=== PATIENT | female | born 1950 | race Caucasian/White ===

== ENCOUNTER 2023-03-13 19:18 | Outpatient (REF) | payer MEDICARE, MEDICAID, SELFPAY | END 2023-03-13 19:19 | disposition home or self-care (01) | LOC: HO.HHCLNP 19:18 | PROVIDERS: Visit Provider Family Medicine | DX: R30.0 Dysuria (principal) | CPT/HCPCS: 36415; 81513; 87086 ==

== ENCOUNTER 2023-04-26 16:06 | Outpatient (REF) | payer MEDICARE, MEDICAID, SELFPAY | END 2023-04-26 16:07 | disposition home or self-care (01) | LOC: HO.CHCLNP 16:06 | PROVIDERS: Visit Provider Pediatrics | DX: N39.0 Urinary tract infection, site not specified (principal) | CPT/HCPCS: 87086 ==

== ENCOUNTER 2023-05-02 08:12 | Outpatient (REF) | payer MEDICARE, MEDICAID, SELFPAY ==
[2023-05-02 14:27] LABS: MANUAL DIFF FLAG NO
[2023-05-02 14:33] LABS: Basophils Percent Auto 0.3 % (0-2); Eosinophils Absolute Auto 0.3 X10*3/uL (0.0-0.4); Eosinophils Percent Auto 4.9 % (0-4); Hematocrit 35.4 % (37.0-47.0); Hemoglobin 11.9 g/dl (12.0-16.0); Imm Gran Abs Auto 0.02 X10*3/uL (0.00-0.03); Imm Gran Pct Auto 0.3 % (0.0-0.4); Lymphocytes Absolute Auto 2.2 X10*3/uL (1.2-4.9); Lymphocytes Percent Auto 37.7 % (20-40); Mean Corpuscular HGB Conc 33.6 g/dl (31.0-35.0); Mean Corpuscular Hemoglobin 31.8 pg (27.0-33.0); Mean Corpuscular Volume 94.7 fL (80.0-98.0); Mean Platelet Volume 10.8 fL (9.4-12.3); Monocytes Absolute Auto 0.4 X10*3/uL (0.1-1.2); Monocytes Percent Auto 6.8 % (2-11); Neutrophils Absolute Auto 2.9 x10*3/uL (2.0-8.3); Platelet Count 232 X10*3/uL (160-400); Red Blood Count 3.74 X10*6/uL (4.20-5.50); Red Cell Distribution Width 12.9 % (11.0-16.0); White Blood Count 5.9 X10*3/uL (4.8-10.8)
[2023-05-02 14:48] LABS: Anion Gap 11 (12-20); Blood Urea Nitrogen 25 mg/dL (9-16); Calcium 9.3 mg/dL (8.4-10.2); Carbon Dioxide 26 mmol/L (22-29); Chloride 108 mmol/L (96-108); Estimated Glomerular Filt Rate 59; Glucose Fasting 103 mg/dL (60-99); Potassium 3.5 mmol/L (3.3-5.1); Sodium 141 mmol/L (135-145)
[2023-05-02 15:07] LABS: TSH reflex Free T4 3.83 uIU/mL (0.32-4.0)
[2023-05-02 15:29] LABS: Creatinine Urine 61.84 mg/dL; Microalbum/Creatinine Ratio Ur 12.9 ug/mg cr (<30)
== END 2023-05-02 08:13 | disposition home or self-care (01) ==
LOC: HO.CHCLDS 08:12
PROVIDERS: Visit Provider Pediatrics
DX: N39.0 Urinary tract infection, site not specified (principal); J30.2 Other seasonal allergic rhinitis; M54.50 Low back pain, unspecified; M79.606 Pain in leg, unspecified; E03.9 Hypothyroidism, unspecified
CPT/HCPCS: 36415; 80048; 82043; 82570; 84443; 85025

== ENCOUNTER 2024-07-02 10:19 | Outpatient (REF) | payer MEDICARE, MEDICAID, SELFPAY ==
--- OUTSIDE RECORDS SUMMARY | 2024-07-02 11:27 | XMS_ITS | Encounter Summary ---
Author Organization [employer] Address [address] [place] [address] 7t [place] [address] Care Team Providers Care Data Engineer Name Role Phone Dorene Benavides MD Primary Care Provider [phone] Reason for Visit * Reason Comments Med Refill Encounter Details Date Type Department Care Team ([facility] st Contact Info) Description 11/05/2022 Refill [facility] [address] [place], [place] [phone] Dorene Benavides MD [address] [place] [address] Social History Tobacco Use Types Packs/Day Years Used Date Smoking Tobacco: Never Assessed Comments Unknown Sex and Gender Information Value Date Recorded Sex Assigned at Female 03/12/2022 10:19 AM EDT Legal Sex Female 10:19 AM EDT Gender Identity Female 03/12/2022 10:19 AM EDT Sexual Orientation Straight 03/12/2022 10 :19 AM EDT documented as of this encounter Plan of Treatment Not on file documented as of this encounter Visit Diagnoses Not on filedocumented in this encounter Care Teams Data Engineer Relationship Specialty Start Date End Date Dorene Benavides MD [address] [place] [address] PCP - General Family Medicine 05/13/18 documented as of this encounter
--- OUTSIDE RECORDS SUMMARY | 2024-07-02 11:27 | XMS_ITS | Encounter Summary ---
Author Organization [employer] Address [address] [facility] 7t [place] [address] Care Team Providers Care Grading Machine Operator Name Role Phone Dorene Benavides MD Primary Care Provider [phone] Reason for Visit * Reason Comments Med Refill Encounter Details Date Type Department Care Team ([facility] st Contact Info) Description 2024 Refill [facility] [address] [place], [place] [phone] Dorene Benavides MD 505 [place] [address] Primary hypertension Social History Tobacco Use Types Packs/Day Years Used Date Smoking Tobacco: Never Passive Smoke Exposure: Never Smokeless Tobacco: Never Depression Answer Date Recorded Patient Health Questionnaire-9 Score 2 04/26/2023 Patient Health Questionnaire-9 Score 2 04/26/2023 Last PHQ-9: Questionnaire Data Not on file 1 06/27/2022 Housing Stability Answer Date Recorded What is your housing situation today? I have saranya dee 04/26/[address] you li ve. Do you have problems with any of the following? None of the above 04/26/2023 Food Insecurity Answer Date Recorded Within the past 12 months, y ou worried that your food would run out before you got money to buy more: Never True 04/26/2023 Within the past 12 months,th e food you bought just didn't last and you didn't have enough money to get more: Never True Transportation Answer Date Recorded In the past 12 months, has l ack of transportation kept you from medical appts, meetings, work or from getting things needed for daily living? No 04/26/2023 Utilities Answer Date Recorded In the past 12 months, has t he electric, gas, oil or water company threatened to shut off services in your home? No 04/26/2023 Depression Answer Date Recorded Patient Health Questionnaire-2 Score 0 04/26/2023 Comments Unknown Sex and Gender Information Value Date Recorded Sex Assigned at Female 03/12/2022 10:19 AM EDT Legal Sex Female 10:19 AM EDT Gender Identity Female 03/12/2022 10:19 AM EDT Sexual Orientation Straight 03/12/2022 10 :19 AM EDT documented as of this encounter Plan of Treatment Not on file documented as of this encounter Visit Diagnoses Diagnosis Primary hypertension Unspecified essential hypertension documented in this encounter Additional Health Concerns Assessment Noted Time PHQ-9 Depression Total Score: 2 04/26/20 23 10:53 AM EST documented as of this encounter Care Teams Grading Machine Operator Relationship Specialty Start Date End Date Dorene Benavides MD [address] [place] [id number] PCP - General Family Medicine 05/13/18 documented as of this encounter
--- OUTSIDE RECORDS SUMMARY | 2024-07-02 11:27 | XMS_ITS | Encounter Summary ---
Author Organization [employer] Address [address] [facility] 7t [place] [address] Care Team Providers Care Falafel Cart Cook Name Role Phone Dorene Benavides MD Primary Care Provider [phone] Reason for Visit * Reason Comments Med Refill Encounter Details Date Type Department Care Team ([facility] Contact Info) Description 11/28/2023 Refill [facility] [address] [place], [place] [phone] Dorene Benavides MD [address] [place] [address] Social History Tobacco Use Types Packs/Day Years [...] Diagnoses Not on filedocumented in this encounter Additional Health Concerns Assessment Noted Time PHQ-9 Depression Total Score: 2 04/26/20 23 10:53 AM EST documented as of this encounter Care Teams Falafel Cart Cook Relationship Specialty Start Date End Date Dorene Benavides MD [address] [place] [address] PCP - General Family Medicine 05/13/18 documented as of this encounter
--- OUTSIDE RECORDS SUMMARY | 2024-07-02 11:27 | XMS_ITS | Encounter Summary ---
Author Organization [employer] Address [address] [facility] 7t [place] [address] Care Team Providers Care Laboratory Chief Name Role Phone Dorene Benavides MD Primary Care Provider [phone] Encounter Details Date Type Department Care Team (Late st Contact Info) Description 09/17/2022 Orders Only [facility] [address] [place] [address] Mini Johansen LPN Social History Tobacco Use Types Packs/Day Years [...] on file documented as of this encounter Procedures Procedure Name Priority Date/Time Associated Diagnosis Comments CULTURE, URINE, ROUTINE Routine 03/13/2023 3:20 PM EDT documented in this encounter Results * Culture, Urine, Routine (03/13/2023 3:20 PM EDT) Urine Urine specimen obtained by clean catch procedure / Unknown 03/13/2023 3:20 PM EDT 03/13/2023 7:33 PM EDT Comment:[facility] - 03/15/2023 11:46 AM EDT Urine Culture Report Result Urine Culture < 10,000 cfu/ml Specimen Source: Urine clean catch us Daisy Mcfadden MD LAB MICROBIOLOGY - GENERAL OR DERABLES Final Result [facility] [address] [place] [address] [phone] documented in this encounter Visit Diagnoses Not on filedocumented in this encounter Care Teams Laboratory Chief Relationship Specialty Start Date End Date Dorene Benavides MD [address] [place] [phone] PCP - General Family Medicine 05/13/18 documented as of this encounter
--- OUTSIDE RECORDS SUMMARY | 2024-07-02 11:27 | XMS_ITS | Encounter Summary ---
Author Organization [employer] Address [address] [facility] 7t [place] [address] Care Team Providers Care Youth Development Professional Name Role Phone Dorene Benavides MD Primary Care Provider [phone] Encounter Details Date Type Department Care Team (Latest Contact Info) Description 07/02/2024 Travel Social History Tobacco Use Types Packs/Day Years Used Date Smoking Tobacco: Never Passive Smoke Exposure: Never Smokeless Tobacco: Never Depression Answer Date Recorded Patient Health Questionnaire-9 Score 0 07/02/2024 Patient Health Questionnaire-9 Score 0 07/02/2024 Last PHQ-9: Questionnaire Data Not on file 0 07/02/2024 Housing Stability Answer Date Recorded What is your housing situation today? Not on christy e 07/02/[address] you li ve. Do you have problems with any of the following? None of the above 07/02/2024 Food Insecurity Answer Date Recorded Within the past 12 months, y ou worried that your food would run out before you got money to buy more: Never True 07/02/2024 Within the past 12 months,th e food you bought just didn't last and you didn't have enough money to get more: Never True Transportation Answer Date Recorded In the past 12 months, has l ack of transportation kept you from medical appts, meetings, work or from getting things needed for daily living? No 07/02/2024 Utilities Answer Date Recorded In the past 12 months, has t he electric, gas, oil or water company threatened to shut off services in your home? No 07/02/2024 Depression Answer Date Recorded Patient Health Questionnaire-2 Score 0 07/02/2024 Internet Access Answer Date Recorded Internet Access Q1 Yes 07/02/2024 Internet Access Q2 Not on file 07/02/2024 Comments Unknown Sex and Gender Information Value [...] Assessment Noted Time PHQ-9 Depression Total Score: 0 07/02/19 25 9:21 AM EST documented as of this encounter Care Teams Youth Development Professional Relationship Specialty Start Date End Date Dorene Benavides MD [address] [place] [phone] PCP - General Family Medicine 05/13/18 documented as of this encounter
--- OUTSIDE RECORDS SUMMARY | 2024-07-02 11:27 | XMS_ITS | Clinical Summary ---
Author Organization [employer] Address [address] [facility] 7t [place] [address] Care Team Providers Care Crimping Machine Operator Name Role Phone Dorene Benavides MD Primary Care Provider [phone] Allergies Active Allergy Reactions Criticality Noted Date Comments Raymond Inhibitors Unknown 06/22/2010 Medications loratadine (Claritin) 10 MG tablet Take 10 mg by mouth if needed each day. 09/20/19 23 Active Acetaminophen Extra Strength 500 MG tablet Take 1 tab orally bid prn pain 60 tablet 5 04/26/20 23 Active Aspirin Low Dose 81 MG EC tablet TAKE 1 TABLET(81 MG) BY MOUTH EVERY DAY 100 tablet 2 05/29/19 24 Active triamcinolone (Kenalog) 0.5 % ointment Apply topically 2 times daily. 200 g 3 10/02/19 24 Active levothyroxine (Synthroid, Levoxyl) 25 MCG tablet TAKE 1 TABLET BY MOUTH EVERY DAY 180 tablet 11/12/19 24 Active hydroCHLOROthia zide (HYDRODiuril) 25 MG tablet TAKE 1 TABLET BY MOUTH EVERY DAY 90 tablet 2 03/04/20 24 Active meloxicam (Mobic) 7.5 MG tablet Take 1 tablet (7.5 mg) by mouth Once per day. 30 tablet 11 03/31/20 24 025 Active cholecalciferol VITAMIN D (Vitamin D-3) 50 MCG (1999) capsule TAKE 1 CAPSULE BY MOUTH TWICE DAILY 180 capsule 05/18/19 25 Active metoprolol succinate XL (Toprol-XL) 50 MG 24 hr tablet TAKE 1 TABLET BY MOUTH EVERY DAY 90 tablet 2 06/22/19 25 Active losartan (Cozaar) 100 MG tabletIndicatio ns:Primary hypertension TAKE 1 TABLET(100 MG) BY MOUTH IN THE MORNING 90 tablet 06/22/19 25 Active estradiol (Estrace) 0.1 MG/GM vaginal cream APPLY A DIME SIZED AMOUNT VAGINALLY 3 TIMES WEEKLY 05/29/19 25 Active famotidine (Pepcid) 20 MG tablet Take 1 tablet (20 mg) by mouth 2 times daily. 60 tablet 3 07/02/19 25 025 Active cyclobenzaprine (Flexeril) 10 MG tablet Take 1 tablet (10 mg) by mouth 3 times daily for 10 days. 30 tablet 05/14/19 24 025 Discontinued(Si de effects) metoprolol succinate XL (Toprol-XL) 50 MG 24 hr tablet TAKE 1 TABLET BY MOUTH 1 TIME 90 tablet 2 09/18/19 24 025 Discontinued terbinafine (LamISIL AT) 1 % cream Apply topically 2 times daily. 90 g 10/02/19 24 025 Discontinued(Th erapy completed) losartan (Cozaar) 100 MG tabletIndicatio ns:Primary hypertension TAKE 1 TABLET(100 MG) BY MOUTH IN THE MORNING 90 tablet 03/20/20 24 025 Discontinued omeprazole (PriLOSEC) [address] capsule TAKE 1 CAPSULE BY MOUTH EVERY DAY BEFORE A MEAL 30 capsule 3 03/30/20 24 025 Discontinued( erapy completed) Active Problems Problem Noted Date Diagnosed Date Rash 10/02/2023 Assessment & Plan (10/02/2023 9:30 AM EDT): Prescribing Terbinafine for symptoms. Refilling Triamcinolone for continued treatment of itchy skin. Relevant Medication Terbinafine (Lamisil AT)1% cream Triamcinolone (Kenalog) 0.5% ointment Dysuria 03/13/2023 Assessment & Plan (03/13/2023 2:53 PM EDT): Patient that presented visit with complaints of dysuria will be given antibiotics to treat concern. Was advised to do a self sure-swab to be sent for evaluation. Recurrent UTI 03/13/2023 Assessment & Plan (03/13/2023 2:53 PM EDT): -Will be referred to Urology for further treatment and evaluation. Idiopathic osteoarthritis 07/31/20172022 Intermittent palpitations 12/19/20162022 Paroxysmal tachycardia 12/05/2016 Medial epicondylitis 07/06/2015 03/13/2023 Benign essential hypertension 07/06/2015 Osteopenia 10/07/2013 03/13/2023 Bunion of left foot 09/19/2012 03/13/2023 Overweight 11/15/2011 03/13/2023 Hypertension 11/15/2011 03/13/2023 Gastroesophageal reflux disease without esophagi tis 11/15/2011 03/13/2023 Allergic rhinitis 11/15/2011 03/13/2023 Encounters Date Type Department Care Team Description 07/02/2024 9:30 AM EST Office Visit [facility] [address] [place] [address] Dorene Benavides MD Breast cancer screening by mammogram (Primary Dx); Dietary counseling; Exercise counseling; Primary hypertension; Vitamin D deficiency 07/02/2024 Travel 2024 Refill [facility] [address] [place] [address] Dorene Benavides MD Primary hypertension 06/18/2024 Patient Outreach [facility] [address] [place] [id number] Dorene Benavides MD Pre-visit Planning (Pre visit planning LVM ) 05/15/2024 Refill [facility] [address] [place] [address] Dorene Benavides MD 05/15/2024 Telephone [facility] [address] [place] [address] Alba Alan RN Referral question 04/21/2024 Orders Only [facility] [address] [place] [address] Dorene Benavides MD Anterolisthesis of lumbar spine (Primary Dx); Multilevel degenerative joint disease of spine; Osteopenia, unspecified location 04/15/2024 Orders Only [facility] [address] [place] [address] Merna Ren MD Acute bilateral low back pain without sciatica (Primary Dx) 04/15/2024 Telephone [facility] [address] [place] [address] Dorene Benavides MD Nurse Triage; Referral 04/13/2024 Telephone [facility] [address] [place] [address] Dorene Benavides MD Referral 04/05/2024 Refill [facility] [address] [place] [address] Dorene Benavides MD 04/01/2024 Telephone [facility] [address] [place] [address] Merna Ren MD from Last 3 Months Immunizations Name Administration Dates Next Due Influenza injectable quadriv alent IIV4 with preservative 01/26/2015 Influenza, IIV3, injectable 03/16/2014 Influenza, Split (incl. purified surface antigen ) 03/05/2013 Influenza, trivalent, adjuvanted 03/06/2016 Pneumococcal Polysaccharide PPSV23 12/13/2010 Tdap 12/13/2010 Zoster, Recombinant 01/10/2018,08/29/2017 Zoster, live 09/22/2012 Social History Tobacco Use Types Packs/Day Years Used Date Smoking Tobacco: Never Passive Smoke Exposure: Never Smokeless Tobacco: Never Tobacco Cessation:Counseling Given: Not Answered Depression Answer Date Recorded Patient Health Questionnaire-9 [...] Orientation Straight 03/12/2022 10 :19 AM EDT Last Filed Vital Signs Vital Sign Reading Time Taken Comments Blood Pressure 155/78 07/02/2024 9:20 AM EST Pulse 68 07/02/2024 9:20 AM EST Temperature 36.8 ??C (98.3 ??F) 07/02/2024 9:20 AM ES T Respiratory Rate 14 07/02/2024 9:20 AM EST Oxygen Saturation 97% 07/02/2024 9:20 AM EST Inhaled Oxygen Concentration - - Weight 71.7 kg (158 lb) 07/02/2024 9:20 AM EST Height 154.9 cm (5' 1 ) 07/02/2024 9:20 AM EST Body Mass Index 29.85 07/02/2024 9:20 AM EST Plan of Treatment Health Maintenance Due Date Last Done Comments CT Colonography 1949 Colonoscopy 1949 Colorectal Cancer Screening 1950 FIT DNA/Cologuard 1949 FIT 1949 FOBT 1950 Sigmoidoscopy 1949 Hepatitis C Screening 1967 Pneumococcal Vaccine: 50+ Years (2 of 2 - PCV) 12/14/2011 12/13/2010 DTaP/Tdap/Td Vaccines (2 - Td or Tdap) 12/13/2020 12/13/2010 COVID-19 Vaccine (2023- season) 2024 Influenza Vaccine (#1) 2024 6, 01/26/2015, 03/16/2014, Additional history exists SDOH Screening 04/26/2024 04/26/2023 Tobacco Screening 05/14/2024 05/14/2023 RSV Patients and Patients Aged 60 years or older (1 - 1-dose 75+ series) 2024 Alcohol/Substance Use Screening 07/02/2025 07/02/2024 Depression Screening 07/02/2025 07/02/2024, 07/02/19 25 Lipid Panel 03/09/2027 03/09/2022, 12/2020, 03/22/2020 Zoster Vaccines Completed 01/10/2018, 08/11, 09/22/2012 HIB Vaccines Aged Out No longer eligi ble based on patient's age to complete this topic HPV Vaccines Aged Out No longer eligi ble based on patient's age to complete this topic Hepatitis A Vaccines Aged Out No long er eligible based on patient's age to complete this topic Hepatitis B Vaccines Aged Out No long er eligible based on patient's age to complete this topic IPV Vaccines Aged Out No longer eligi ble based on patient's age to complete this topic Meningococcal Vaccine Aged Out No erinn amadeo eligible based on patient's age to complete this topic RSV under 20 months Aged Out No longe r eligible based on patient's age to complete this topic Rotavirus Vaccines Aged Out No longer eligible based on patient's age to complete this topic Procedures Procedure Name Priority Date/Time Associated Diagnosis Comments XR LUMBAR SPINE 2-3 VIEWS Routine 04/03/2024 Chronic bilateral low back pain without sciatica XR HIP 2 OR 3 VIEWS LEFT Routine 04/03/2024 Left hip pain LIPID PANEL, STANDARD Routine 03/09/2022 8:53 AM EDT from Last 3 Months or Most Recently Relevant to Health Maintenance Results * XR Hip 2 or 3 Views Left (04/03/2024) Anatomical Region Laterality Modality Lower Extremities, Hip Left Radiograp hic Imaging us Merna Ren MD IMG XR PROCEDURES Final Result * XR Lumbar Spine 2-3 Views (04/03/2024) Anatomical Region Laterality Modality Spine, L-spine Radiographic Dari ging us Merna Ren MD IMG XR PROCEDURES Final Result * (ABNORMAL) LIPID PANEL, STANDARD (03/09/2022 8:53 AM EDT) Chol/HDLC Ratio 3.7 <5.0 (calc) [facility] Cholesterol, Total 183 <200 mg/dL [facility] HDL Cholesterol 49(L) > OR = 50 mg/dL [facility] LDL Cholesterol 110(H) mg/dL (calc) [facility] Comment: Reference range: <100 ?? Desirable range <100 mg/dL for primary prevention; ?? <70 mg/dL for patients with CHD or diabetic patients ?? with > or = 2 CHD risk factors. ?? LDL-C is now calculated using the Quique ?? calculation, which is a validated novel method providing ?? better accuracy than the Friedewald equation in the ?? estimation of LDL-C. ?? Truong HONG et al. MELISA. 2013;310(19): 4706-3391 ?? (http://education.[employer]faq/ZCU694) Non-HDL Cholesterol 134(H) <130 mg/dL (calc) [facility] Comment: For patients with diabetes plus 1 major ASCVD risk ?? factor, treating to a non-HDL-C goal of <100 mg/dL ?? (LDL-C of <70 mg/dL) is considered a therapeutic ?? option. Triglycerides 128 <150 mg/dL CONVE [facility] 03/09/2022 8:53 AM EDT us Dorene Benavides MD LAB BLOOD ORDERABLES Final Re sult [facility] from Last 3 Months or Most Recently Relevant to Health Maintenance Insurance [facility] STANDARD [facility] Care Teams Crimping Machine Operator Relationship Specialty Start Date End Date Dorene Benavides MD [address] [place] [phone] PCP - General Family Medicine 05/13/18
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
--- OUTSIDE RECORDS SUMMARY | 2024-07-02 11:27 | XMS_ITS | Clinical Summary ---
Author Organization [facility] Address [address] [place] [address] Phone Care Team Providers Care Insurance Policy Issue Clerk Name Role Phone Dorene Benavides MD Primary Care Provider [phone] Encounters Date Type Department Care Team Description 05/27/2024 9:29 AM EST - 05/27/2024 11:59 PM EST Hospital Encounter [facility] Bone Density [address] [place] [address] Spondylosis without myelopathy or radiculopathy, site unspecified; Other specified disorders of bone density and structure, unspecified site Discharge Disposition: Home or Self Care from Last 3 Months Social History Tobacco Use Types Packs/Day Years Used Date Smoking Tobacco: Never Assessed Comments Unknown Sex and Gender Information Value Date Recorded Sex Assigned at Female 05/26/2024 8:55 AM EST Legal Sex Female 10:09 AM EST Gender Identity Female 05/26/2024 8:55 AM EST Sexual Orientation Straight 05/26/2024 8: 55 AM EST Plan of Treatment Health Maintenance Due Date Last Done Comments Pneumococcal Vaccine: 50+ Years (2 of 2 - PCV) 12/14/2011 12/13/2010 DTaP,Tdap,and Td Vaccines (2 - Td or Tdap) 12/13/2020 12/13/2010 COVID-19 Vaccine ( - 2023- season) 2024 Influenza Vaccine (#1) 2024 6, 01/26/2015, 03/16/2014, Additional history exists Colorectal Cancer Screening: Colonoscopy 05/07/2024 Depression Screening 05/07/2024 04/26/2023 Falls Risk Assessment 05/07/2024 Hepatitis C Screening 05/07/2024 Medicare Annual Wellness Visit 05/07/2024 Social Influencers of Health Screening 05/07/2024 Hypertension/CHF/CAD Annual BMP Blood Test 05/27/2024 RSV Immunization Patients 60+ Years Old (1 - 1-dose 75+ series) 2024 Cholesterol Screening (Lipid Panel) 03/09/2027 03/09/2022 Osteoporosis Screening (Bone Density Screening) 05/27/2034 05/27/2024 Zoster Vaccines Completed 01/10/2018, 08/11, 09/22/2012 HIB [...] on patient's age to complete this topic MMR Vaccines Aged Out No longer eligi ble based on patient's age to complete this topic Meningococcal ACWY Vaccine Aged Out N o longer eligible based on patient's age to complete this topic Meningococcal B Vacine Aged Out No lo nger eligible based on patient's age to complete this topic RSV Immunization Patients Under 20 months Aged Out No longer eligible based on patient's age to complete this topic Varicella Vaccines Aged Out No longer eligible based on patient's age to complete this topic Procedures Procedure Name Priority Date/Time Associated Diagnosis Comments BD BONE DENSITY DXA AXIAL SKELETON Routine 05/27/2024 9:47 AM EST Spondylosis without myelopathy or radiculopathy, site unspecified Other specified disorders of bone density and structure, unspecified site from Last 3 Months Results * BD Bone Density DXA Axial Skeleton (05/27/2024 9:47 AM EST) Anatomical Region Laterality Modality Wrist, Hip, L-spine Bone Densito metry 05/27/2024 12:2 1 PM EST Impressions 05/27/2024 12:22 PM EST 1. Osteoporosis. 2. FRAX analysis yields a 10-year probability of major osteoporotic fracture of 13.9% and a 10-year probability of hip fracture of 3.8%. Code 93698 -------- FINAL REPORT -------- Dictated By: Dayne Carrillo Dictated Date: 05/27/2024 12:21 ET Assigned Physician: Dayne Carrillo Reviewed and Electronically Signed By: Dayne Carrillo Signed Date: 05/27/2024 12:22 ET Workstation ID: [id number] Transcribed By: Self Edit Transcribed Date: 05/27/2024 12:21 ET Narrative 05/27/2024 12:22 PM EST HISTORY: ??The patient is a 73-year-old postmenopausal female with clinical concern for metabolic bone disease. FINDINGS: ??Dual energy x-ray absorptiometry of the lumbar spine and femurs is performed. The mean bone mineral density at L1-2 is 0.971 gm/cm2 which is 83% of that of young normals and 98% of that of age matched controls. This yields a T-score of -1.6 and a Z-score of -0.1 which is diagnostic of osteopenia. The mean bone mineral density of the femurs bilaterally is 0.783 gm/cm2 which is 78% of that of young normals and 96% of that of age matched controls. ??This yields a T-score of -1.8 and a Z-score of -0.3 which is diagnostic of osteopenia. ??However, the T-score of the left femoral neck is -2.5 which is diagnostic of osteoporosis. Procedure Note Dayne Carrillo MD - 05/27/2024 HISTORY: The patient is a 73-year-old postmenopausal female with clinicalconcern for metabolic bone disease. FINDINGS: Dual energy x-ray absorptiometry of the lumbar spine and femursis performed. The mean bone mineral density at L1-2 is 0.971 gm/cm2 whichis 83% of that of young normals and 98% of that of age matched controls.This yields a T-score of -1.6 and a Z-score of -0.1 which is diagnostic ofosteopenia. The mean bone mineral density of the femurs bilaterally is 0.783 gm/to2dsbsl is 78% of that of young normals and 96% of that of age matchedcontrols. This yields a T-score of -1.8 and a Z-score of -0.3 which isdiagnostic of osteopenia. However, the T-score of the left femoral neckis -2.5 which is diagnostic of osteoporosis. IMPRESSION: 1. Osteoporosis. 2. FRAX analysis yields a 10-year probability of major osteoporoticfracture of 13.9% and a 10-year probability of hip fracture of 3.8%. Code 67274 -------- FINAL REPORT -------- Dictated By: Dayne Carrillo Dictated Date: 05/27/2024 12:21 ET Assigned Physician: Dayne Carrillo Reviewed and Electronically Signed By: Dayne Carrillo Signed Date: 05/27/2024 12:22 ET Workstation ID: [id number] Transcribed By: Self Edit Transcribed Date: 05/27/2024 12:21 ET Dorene Benavides MD IMG DXA PROCEDURES Final Resu lt from Last 3 Months Insurance MEDICAID - [place] MEDICARE Care Teams Insurance Policy Issue Clerk Relationship Specialty Start Date End Date Dorene Benavides MD [address] [place] [phone] PCP - General Internal Medicine 05/26/24
--- OUTSIDE RECORDS SUMMARY | 2024-07-02 11:27 | XMS_ITS | Encounter Summary ---
Author Organization [employer] Address [address] [place] [address] Care Team Providers Care Physical Therapy Supervisor Name Role Phone Dorene Benavides MD Primary Care Provider [phone] Encounter Details Date Type Department Care Team ([facility] st Contact Info) Description 09/25/2023 Telephone [facility] [address], [place] [id number] Dorene Benavides MD [address] [place] [address] Social History Tobacco Use Types Packs/Day Years Used Date Smoking Tobacco: Never Passive Smoke Exposure: Never Smokeless Tobacco: Never Depression Answer Date Recorded Patient Health Questionnaire-9 Score 2 04/26/2023 Patient Health Questionnaire-9 Score 2 04/26/2023 Last PHQ-9: Questionnaire Data Not on file 1 06/27/2022 Housing Stability Answer Date Recorded What is your housing situation today? I have saranyatosin dee 04/26/[address] you [...] encounter Miscellaneous Notes * Telephone Encounter - Wing Yesenia RN - 09/25/2023 3:27 PM EDT Tc to pt's daughter. Daughter stated pt has dry and itchy rash on foot and ankle bilaterally and would like prescription of triamcinolone acetonide that was prescribed back in Feb by Dr. Connell. Gave appt on 10/02/[address] Mcfadden at 9 am as this works best for daughter to accompany pt. * Telephone Encounter - Leann Camp - 09/25/2023 2:18 PM EDT Tc from pt daughter requesting med refill for medication triamcinolone acetonide. But I did not seemedication on med list. Please call daughter to clarify. documented in this encounter Plan of Treatment Not on file documented as of this encounter Visit Diagnoses Not on filedocumented in this encounter Additional Health Concerns Assessment Noted Time PHQ-9 Depression Total Score: 2 04/26/20 23 10:53 AM EST documented as of this encounter Care Teams Physical Therapy Supervisor Relationship Specialty Start Date End Date Dorene Benavides MD [address] [place] [address] PCP - General Family Medicine 05/13/18 documented as of this encounter
--- OUTSIDE RECORDS SUMMARY | 2024-07-02 11:27 | XMS_ITS | Encounter Summary ---
Author Organization [employer] Address [address] [place] [address] [address] [place] [address] Care Team Providers Care Respiratory Therapy Instructor Name Role Phone Dorene Benavides MD Primary Care Provider [phone] Reason for Referral * Imaging (Routine) - Closed Specialty Diagnoses / Procedures Referred By Contac t Referred To Contact Radiology Diagnoses Breast cancer screening by mammogram Procedures BI Mammogram Screening Tomosynthesis Bilateral Dorene Benavides MD [address] [place] [address] Phone: tel: fax: [facility] Referral ID Status Reason Start Date Expiration Date Visits Re quested Visits Authorized [id number] Closed 07/02/2024 07/02/2025 1 1 Reason for Visit * Reason Comments Annual Exam Encounter Details Date Type Department Care Team ([facility] Contact Info) Description 07/02/2024 9:30 AM EST Office Visit [facility] PED[facility] [address] [place] [address] Dorene Benavides MD [address] [place] [address] Breast cancer screening by mammogram (Primary Dx); Dietary counseling; Exercise counseling; Primary hypertension; Vitamin D deficiency Social History Tobacco Use Types Packs/Day Years [...] AM EDT documented as of this encounter Last Filed Vital Signs Vital Sign Reading [...] Mass Index 29.85 07/02/2024 9:20 AM EST documented in this encounter Plan of Treatment Scheduled Orders Name Type Priority Associated Diagnoses Orde r Schedule BI Mammogram Screening Tomosynthesis Bilateral Imaging Routine Breast cancer screening by mammogram Expected: 07/02/2024, Expires: 08/30/2025 Albumin, Random Urine W/Creatinine Lab Routine Dietary counseling Exercise counseling Breast cancer screening by mammogram Primary hypertension Vitamin D deficiency Expected: 07/02/2024 (Approximate), Expires: 07/02/2025 CBC auto differential Lab Routine Dietary counseling Exercise counseling Breast cancer screening by mammogram Primary hypertension Vitamin D deficiency Expected: 07/02/2024 (Approximate), Expires: 07/02/2025 Comprehensive Metabolic Panel Lab Routine Dietary counseling Exercise counseling Breast cancer screening by mammogram Primary hypertension Vitamin D deficiency Expected: 07/02/2024 (Approximate), Expires: 07/02/2025 TSH W/Reflex to FT4 Lab Routine Dietary counseling Exercise counseling Breast cancer screening by mammogram Primary hypertension Vitamin D deficiency Expected: 07/02/2024 (Approximate), Expires: 07/02/2025 Vitamin D, 25-Hydroxy, Total, Immunoassay Lab Routine Dietary counseling Exercise counseling Breast cancer screening by mammogram Primary hypertension Vitamin D deficiency Expected: 07/02/2024 (Approximate), Expires: 07/02/2025 Lipid Panel, Standard Lab Routine Dietary counseling Exercise counseling Breast cancer screening by mammogram Primary hypertension Vitamin D deficiency Expected: 07/02/2024 (Approximate), Expires: 07/02/2025 documented as of this encounter Visit Diagnoses Diagnosis Breast cancer screening by mammogram- Primary Dietary counseling Dietary surveillance and counseling Exercise counseling Primary hypertension Unspecified essential hypertension Vitamin D deficiency documented in this encounter Additional Health Concerns Assessment Noted Time PHQ-9 Depression Total Score: 0 07/02/19 25 9:21 AM EST documented as of this encounter Care Teams Respiratory Therapy Instructor Relationship Specialty Start Date End Date Dorene Benavides MD [address] [place] [id number] PCP - General Family Medicine 05/13/18 documented as of this encounter
--- OUTSIDE RECORDS SUMMARY | 2024-07-02 11:27 | XMS_ITS | Encounter Summary ---
Author Organization [employer] Address [address] [facility] [address] [place] [address] Care Team Providers Care Paper Conservator Name Role Phone Dorene Benavides MD Primary Care Provider [phone] Reason for Visit * Reason Comments Pre-visit Planning Pre visit planning L VM Encounter Details Date Type Department Care Team ([facility] st Contact Info) Description 06/18/[address] [facility] [address] [place] [address] Dorene Benavides MD [address] [place], [place] [phone] Pre-visit Planning (Pre visit planning LVM ) Social History Tobacco Use Types Packs/Day Years [...] AM EDT documented as of this encounter Progress Notes * Vangie Alberto - 06/18/2024 2:06 PM EST LOKI Acevedo placed outbound call to patient to complete pre-visit planning. No answer at this time.Patient name and were not confirmed. CC left voicemail requesting return call. Direct contact information provided. documented in this encounter Plan of Treatment Not on file documented as of this encounter Visit Diagnoses Not on filedocumented in this encounter Additional Health Concerns Assessment Noted Time PHQ-9 Depression Total Score: 2 04/26/20 23 10:53 AM EST documented as of this encounter Care Teams Paper Conservator Relationship Specialty Start Date End Date Dorene Benavides MD [address] [place] [address] PCP - General Family Medicine 05/13/18 documented as of this encounter
[2024-07-02 14:12] LABS: MANUAL DIFF FLAG NO
[2024-07-02 14:20] LABS: Basophils Percent Auto 0.5 % (0-2); Eosinophils Absolute Auto 0.3 X10*3/uL (0.0-0.4); Eosinophils Percent Auto 3.8 % (0-4); Hematocrit 36.4 % (37.0-47.0); Hemoglobin 12.4 g/dl (12.0-16.0); Imm Gran Abs Auto 0.03 X10*3/uL (0.00-0.03); Imm Gran Pct Auto 0.5 % (0.0-0.4); Lymphocytes Absolute Auto 2.2 X10*3/uL (1.2-4.9); Lymphocytes Percent Auto 34.5 % (20-40); Mean Corpuscular HGB Conc 34.1 g/dl (31.0-35.0); Mean Corpuscular Hemoglobin 31.9 pg (27.0-33.0); Mean Corpuscular Volume 93.6 fL (80.0-98.0); Mean Platelet Volume 9.7 fL (9.4-12.3); Monocytes Absolute Auto 0.4 X10*3/uL (0.1-1.2); Monocytes Percent Auto 6.8 % (2-11); Neutrophils Absolute Auto 3.5 x10*3/uL (2.0-8.3); Neutrophils Percent Auto 53.9 % (45-73); Platelet Count 285 X10*3/uL (160-400); Red Blood Count 3.89 X10*6/uL (4.20-5.50); Red Cell Distribution Width 12.9 % (11.0-16.0); White Blood Count 6.5 X10*3/uL (4.8-10.8)
[2024-07-02 14:39] LABS: Alanine Aminotransferase 22 U/L (0-31); Albumin Level 4.1 g/dL (3.5-5.0); Alkaline Phosphatase 76 U/L (39-117); Anion Gap 12 (12-20); Aspartate Amino Transferase 28 U/L (5-31); Bilirubin Total 0.6 mg/dL (0.0-1.0); Blood Urea Nitrogen 25 mg/dL (9-16); Calcium 9.6 mg/dL (8.4-10.2); Carbon Dioxide 26 mmol/L (22-29); Chloride 108 mmol/L (96-108); Cholesterol 197 mg/dL (<200); Estimated Glomerular Filt Rate > 60; Glucose Random 110 mg/dL (60-115); HDL Cholesterol 44 mg/dL (>40); LDL Cholesterol Calculated 129 mg/dL (<100); Potassium 3.6 mmol/L (3.3-5.1); Sodium 142 mmol/L (135-145); Total Protein 7.2 g/dL (6.5-8.0); Triglycerides 124 mg/dL (<150)
[2024-07-02 14:43] LABS: Creatinine Urine 180.72 mg/dL; Microalbum/Creatinine Ratio Ur 8.3 ug/mg cr (<30)
[2024-07-02 14:49] LABS: TSH reflex Free T4 2.47 uIU/mL (0.32-4.0); Vitamin D 25-OH Total > 154.2 ng/mL (>30)
== END 2024-07-02 10:20 | disposition home or self-care (01) ==
LOC: HO.CHCLDS 10:19
PROVIDERS: Visit Provider Pediatrics
DX: I10 Essential (primary) hypertension (principal); E55.9 Vitamin D deficiency, unspecified; Z71.82 Exercise counseling; Z71.3 Dietary counseling and surveillance
CPT/HCPCS: 36415; 80053; 80061; 82043; 82306; 82570; 84443; 85025